=== PATIENT | male | born 1960 | race American Indian/Alaskan Native ===

== ENCOUNTER 2018-12-20 19:19 | Emergency (ER) | payer MEDICAID ==
--- NOTE | 2018-12-20 20:12 | Emergency Department Report ---
Chief Complaint: Medical Clearance Stated Complaint: CLEARANCE FOR DETOX Time Seen by Provider: 12/20/18 20:07 - HPI History of Present Illness: This is a 58 y.o. male that presents for assistance with alcohol detox. The last drink was 2 hours ago. PMH COPD on home oxygen 3L, CHF, chronic pain, and DVT. Denies SI/HI, palpitations, chest pain, nausea or vomiting. - ROS Review of Systems: denies symptoms - Exam Vital Signs: Vital Signs 12/20/18 20:07 Temperature 98.1 F Pulse Rate 98 H Respiratory 20 Rate Blood Pressure 124/68 O2 Sat by Pulse 98 Oximetry MSE screening note: Focused history and physical exam performed. Due to findings the following was ordered: labs ED Disposition for MSE Condition: Stable
[2018-12-20 20:40] LABS: Basophils % (Auto) 0.3 % (0.0-1.8); Eosinophils # (Auto) 0.2 K/mm3 (0.0-0.4); Eosinophils % (Auto) 3.7 % (0.0-4.3); Hematocrit 40.2 % (35.5-45.6); Lymphocytes # (Auto) 1.6 K/mm3 (1.2-5.4); Lymphocytes % (Auto) 26.3 % (13.4-35.0); Mean Corpuscular HGB Conc 32 % (32-34); Mean Corpuscular Volume 99 fl (84-94); Monocytes # (Auto) 0.7 K/mm3 (0.0-0.8); Monocytes % (Auto) 11.3 % (0.0-7.3); Platelet Count 185 K/mm3 (140-440); Red Blood Count 4.07 M/mm3 (3.65-5.03); Red Cell Distribution Width 19.9 % (13.2-15.2)
[2018-12-20 20:54] LABS: BUN/Creatinine Ratio 10; Blood Urea Nitrogen 10 mg/dL (9-20); Calcium 8.3 mg/dL (8.4-10.2); Hemolysis Index 24
[2018-12-20 21:14] LABS: Bacteria,Urine 2+ /HPF (Negative); Bilirubin,Urine NEG (Negative); Blood,Urine NEG (Negative); Color,Urine Amber (Yellow); Hyaline Casts,Urine 15 /LPF; Mucus,Urine 1+ /HPF
[2018-12-20 21:16] LABS: WBC,Urine > 182.0 /HPF (0.0-6.0)
[2018-12-20 21:18] LABS: Amphetamine Screen,Urine PRESUMPTIVE NEGATIVE; Benzodiazepines Screen,Urine PRESUMPTIVE NEGATIVE; Cannabinoid Screen,Urine PRESUMPTIVE NEGATIVE; Cocaine Screen,Urine PRESUMPTIVE NEGATIVE; Opiate Screen,Urine PRESUMPTIVE NEGATIVE
[2018-12-20 21:34] LABS: Methadone Screen,Urine PRESUMPTIVE POSITIVE
--- NOTE | 2018-12-20 23:57 | Emergency Department Report ---
ED Alcohol HPI - General Chief Complaint: Medical Clearance Stated Complaint: CLEARANCE FOR DETOX Time Seen by Provider: 12/20/18 20:07 Source: patient, family Mode of arrival: Wheelchair Limitations: Physical Limitation - History of Present Illness Initial Comments: Patient is 58 years old male with history of COPD on 3 L oxygen at home, diabetes and arthritis. Patient presented to the ER asking for medical clearance for alcohol detoxification inpatient admission. Patient stated that he drink daily about 6 vodka. Last drink just prior to coming to the ER. Patient denied any suicidal or homicidal ideation. No auditory or visual hallucination. Patient denied any shortness of breath or chest pain. MD Complaint: alcohol dependence, desires rehab, medical clearance for det Last Drink: just [employer] Chronic Alcohol Use: Yes Previous Visits for Alcohol Intoxication?: Yes Recent Trauma: No Associated Symptoms: denies other symptoms Treatments Prior to Arrival: none - Related Data Allergies Allergy/AdvReac Type Severity Reaction Status Date / Time No Known Allergies Allergy Unverified 12/20/18 19:51 ED Review of Systems ROS: Stated complaint: CLEARANCE FOR DETOX Other details as noted in HPI Comment: All other systems reviewed and negative Constitutional: denies: chills, fever Respiratory: denies: cough, orthopnea, shortness of breath, SOB with exertion, SOB at rest, wheezing Cardiovascular: denies: chest pain, palpitations Gastrointestinal: denies: abdominal pain, nausea, vomiting, diarrhea, constipation, hematemesis, melena, hematochezia Neurological: denies: headache, weakness, numbness, paresthesias, confusion, abnormal gait ED Past Medical Hx - Past Medical History Hx COPD: Yes (home O2 3L) Additional medical history: DVT'S - Surgical History Past Surgical History?: No - Social History Smoking Status: Former Smoker Substance Use Type: Alcohol ED Physical Exam - General Limitations: Physical Limitation General appearance: alert, in no apparent distress - Head Head exam: Present: atraumatic, normocephalic, normal inspection - Eye Eye exam: Present: normal appearance, PERRL - ENT ENT exam: Present: normal exam, normal orophraynx, mucous membranes moist - Neck Neck exam: Present: normal inspection, full ROM. Absent: tenderness, meningismus, lymphadenopathy, thyromegaly - Respiratory Respiratory exam: Present: normal lung sounds bilaterally. Absent: respiratory distress, wheezes, rales, rhonchi, stridor, chest wall tenderness, accessory muscle use, decreased breath sounds, prolonged expiratory - Cardiovascular Cardiovascular Exam: Present: regular rate, normal rhythm, normal heart sounds - GI/Abdominal GI/Abdominal exam: Present: soft, normal bowel sounds. Absent: distended, tenderness, guarding, rebound, rigid, organomegaly, mass, bruit, pulsatile mass, hernia - Extremities Exam Extremities exam: Present: normal inspection, full ROM, normal capillary refill. Absent: tenderness, pedal edema, joint swelling, calf tenderness - Back Exam Back exam: Present: normal inspection, full ROM. Absent: CVA tenderness (R), CVA tenderness (L), muscle spasm, paraspinal tenderness, vertebral tenderness - Neurological Exam Neurological exam: Present: alert, oriented X3, CN II-XII intact, normal gait, reflexes normal - Skin Skin exam: Present: warm, intact, normal color ED Course Vital Signs 12/20/18 20:07 Temperature 98.1 F Pulse Rate 98 H Respiratory 20 Rate Blood Pressure 124/68 O2 Sat by Pulse 98 Oximetry ED Medical Decision Making - Lab Data Result diagrams: 12/20/18 20:14 12/20/18 20:13 Critical care attestation.: If time is entered above; I have spent that time in minutes in the direct care of this critically ill patient, excluding procedure time. ED Disposition Clinical Impression: Alcohol abuse, Desire for detoxification Disposition: [id number]/TX-[id number]/PSY UNIT Is pt being admited?: No Condition: Stable Referrals: PRIMARY CARE, [Primary Care Provider] - 3-5 Days
[2018-12-21] MEDS ORDERED: LEVAQUIN PO ONE (01:01)
[2018-12-21] MEDS ORDERED: HumuLIN R IV ONE (01:03)
[2018-12-21] MEDS ORDERED: ATIVAN PO PRN (11:52)
[2018-12-21] MEDS ORDERED: K-DUR PO ONE (11:55)
[2018-12-21] MEDS ORDERED: WARFARIN 7.5 MG PO SCH (12:00)
[2018-12-21] MEDS ORDERED: LASIX PO SCH (12:00)
[2018-12-21] MEDS ORDERED: NON-FORMULARY (Lasix 40 MG) PO SCH (12:00)
[2018-12-21] MEDS ORDERED: LASIX ONE (12:15)
[2018-12-21] MEDS: ATIVAN PO PRN ×3 (12:30→22:38)
[2018-12-21 12:35] LABS: INR 1.22 (0.87-1.13)
[2018-12-21 12:36] LABS: Partial Thromboplastin Time 23.5 Sec. (24.2-36.6)
[2018-12-21] MEDS ORDERED: MAGNESIUM SULFATE 2GM/50ML 2 GM/50 ML BAG IV ONE (13:04)
--- NOTE | 2018-12-21 13:07 | Emergency Department Report ---
Blank Doc - Documentation Documentation: pt here awaiting placement for etoh detox CIWA ordered (prn oral Ativan) PO KCL and IV mag to supplement electrolytes Keflex 500 mg BID for uti INR subtherapeutic, coumadin dose ordered and continued. Lasix continued
[2018-12-21] MEDS: COUMADIN PO SCH ×2 (14:28→18:52)
[2018-12-21] MEDS ORDERED: KEFLEX PO SCH (22:00)
[2018-12-21 23:19] LABS: INR 1.18 (0.87-1.13)
[2018-12-22 04:44] LABS: INR 1.2 (0.87-1.13)
[2018-12-22 06:31] VITALS: BP 127/75
--- NOTE | 2018-12-23 12:54 | Consultation ---
History of Present Illness - Reason for Consult Consult date: 12/23/18 Reason for consult: Initial Psychiatric Evaluation - History of Present Psychiatric Illness Patient not seen. Patient discharged. Medications and Allergies Allergies Allergy/AdvReac Type Severity Reaction Status Date / Time No Known Allergies Allergy Unverified 12/20/18 19:51 Home Medications Medication Instructions Recorded Confirmed Last Taken Type Lasix 40 mg PO DAILY 12/21/18 12/21/18 Unknown History Methadone 35 mg PO DAILY 12/21/18 12/21/18 Unknown History Warfarin 7.5 mg PO DAILY 12/21/18 12/21/18 Unknown History cephALEXin [Keflex] 500 mg PO BID 10 Days #20 capsule 12/22/18 Unknown Rx Mental Status Exam - Vital signs Last Vital Signs Temp 97.4 F L 12/21/18 07:32 Pulse 94 H 12/22/18 06:30 Resp 19 12/22/18 06:30 BP 127/75 12/22/18 06:30 Pulse Ox 95 12/22/18 06:30 Results Result Diagrams: 12/20/18 20:14 12/20/18 20:13 All other labs normal.
== END 2018-12-22 08:00 | disposition home or self-care (01) ==
LOC: ED 19:19
DX: F10.20 Alcohol dependence, uncomplicated (principal); J44.9 Chronic obstructive pulmonary disease, unspecified; Z87.891 Personal history of nicotine dependence; Z86.718 Personal history of other venous thrombosis and embolism; Y90.8 Blood alcohol level of 240 mg/100 ml or more
CPT/HCPCS: 36415; 80048; 80307; 81001; 82962; 83735; 85025; 85610; 85730; 96365; 96375; 99284; G0480; J3475; 80320; J1815

== ENCOUNTER 2019-12-03 12:33 | Emergency (ER) | payer MEDICAID ==
--- NOTE | 2019-12-03 12:49 | Event Note ---
ED Screening Note ED Screening Note: CP substernal and left sided that began two days ago feels like a tightness +SOB no n/v/d left leg swelling for a week PMHx COPD, CHF, PE/DVT on eliquis, states he did not take last nights dose This initial assessment/diagnostic orders/clinical plan/treatment(s) is/are subject to change based on patients health status, clinical progression and re- assessment by fellow clinical providers in the ED. Further treatment and workup at subsequent clinical providers discretion. Patient/guardian urged not to elope from the ED as their condition may be serious if not clinically assessed and managed. Initial orders include: CP protocol, US LLE
--- NOTE | 2019-12-03 13:21 | XRay Report ---
CHEST 2 VIEWS INDICATION: CP, SOB, hx of CHF. COMPARISON: None FINDINGS: Support devices: None. Heart: Within normal limits. Lungs/pleura: The lungs are hyperinflated with chronic interstitial changes and scarring/volume loss in the upper lung zones no evidence for pneumonia, pleural fluid or pneumothorax. Additional findings: None. IMPRESSION: Advanced emphysematous changes. Chronic scarring and volume loss in the upper lobes. Signer Name: Fer Brenner Jr, MD Signed: 12/03/2019 1:17 PM Workstation Name: [id number]
[2019-12-03 13:25] LABS: Basophils % (Auto) 0.4 % (0.0-1.8); Eosinophils # (Auto) 0.1 K/mm3 (0.0-0.4); Eosinophils % (Auto) 1.2 % (0.0-4.3); Hematocrit 35.9 % (35.5-45.6); Hemoglobin 11.8 gm/dl (11.8-15.2); Lymphocytes # (Auto) 2.3 K/mm3 (1.2-5.4); Lymphocytes % (Auto) 19.5 % (13.4-35.0); Mean Corpuscular HGB Conc 33 % (32-34); Mean Corpuscular Volume 93 fl (84-94); Monocytes # (Auto) 1.1 K/mm3 (0.0-0.8); Monocytes % (Auto) 9.7 % (0.0-7.3); Platelet Count 284 K/mm3 (140-440); Red Blood Count 3.85 M/mm3 (3.65-5.03); Red Cell Distribution Width 16.2 % (13.2-15.2)
[2019-12-03 13:50] LABS: Alanine Aminotransferase 16 units/L (7-56); BUN/Creatinine Ratio 23; Blood Urea Nitrogen 25 mg/dL (9-20); Calcium 9.8 mg/dL (8.4-10.2); Hemolysis Index 9
[2019-12-03 14:25] LABS: Albumin 4.3 g/dL (3.9-5)
--- NOTE | 2019-12-03 15:06 | Vascular Lab Report ---
DUPLEX DOPPLER LOWER EXTREMITY VEINS, BILATERAL INDICATION: PAIN/EDEMA. Previous history of DVTs with IVC filter and on liquids TECHNIQUE: Duplex doppler imaging was performed through the veins of both lower extremities using ve nous compression and other maneuvers. COMPARISON: No relevant prior imaging study available. FINDINGS: Chronic appearing DVTs are identified in both lower extremities. Chronic DVT on the right side extend s from the right external iliac vein to the proximal right calf veins. Chronic DVT on the left side e xtends from the common femoral vein to the popliteal vein. No definite acute DVT is identified. IMPRESSION: Chronic appearing bilateral DVTs as described. Signer Name: Fer Brenner Jr, MD Signed: 12/03/2019 3:02 PM Workstation Name: [id number]
--- NOTE | 2019-12-03 15:44 | Emergency Department Report ---
<ROSALIO TYLER - Last Filed: 12/04/19 14:16> ED General Adult HPI - General Chief complaint: Chest Pain Stated complaint: SOB, CHEST PAIN Time Seen by Provider: 12/03/19 12:46 Source: patient Mode of arrival: Wheelchair Limitations: No Limitations - History of Present Illness Initial comments: The patient presents to the emergency department chief complaint of chest pain that started last night. Patient states chest pain is located on the left side of his chest without radiation. Patient states that the [facility] and was recently diagnosed with DVTs and supposed to have Eliquis every day but not receive it today. Patient denies shortness of breath, abdominal pain, headache. Patient states he does not want to return to the [facility] because they are not giving him his medications as prescribed. Patient states he is most concerned days not given his Eliquis which he needs for his DVTs -: Sudden Location: chest Radiation: non-radiation Severity scale (0 -10): 6 Quality: dull Consistency: constant Improves with: none Worsens with: none Associated Symptoms: denies other symptoms Treatments Prior to Arrival: none - Related Data Home Medications Medication Instructions Recorded Confirmed Last Taken Albuterol Sulfate [Proventil Hfa] 90 mcg IH PRN 12/03/19 12/03/19 Unknown Apixaban [Eliquis] 5 mg PO QDAY 12/03/19 12/03/19 Unknown Aspirin [Aspirin BABY CHEW TAB] 81 mg PO QDAY 12/03/19 12/03/19 Unknown Budesonide/Formoterol Fumarate 10.2 gm IH PRN 12/03/19 12/03/19 Unknown [Symbicort 160-4.5 Mcg Inhaler] Fluticasone [Flonase] 1 spray NS QDAY 12/03/19 12/03/19 Unknown Folic Acid [Folvite] 1 mg PO QDAY 12/03/19 12/03/19 Unknown Methadone [Dolophine] 10 mg PO QDAY 12/03/19 12/03/19 Unknown Metoprolol Tartrate 25 mg PO BID 12/03/19 12/03/19 Unknown Potassium Chloride 10 meq PO QDAY 12/03/19 12/03/19 Unknown amLODIPine [Norvasc] 10 mg PO DAILY 12/03/19 12/03/19 Unknown hydrALAZINE [Apresoline] 25 mg PO QDAY 12/03/19 12/03/19 Unknown Allergies Allergy/AdvReac Type Severity Reaction Status Date / Time No Known Allergies Allergy Unverified 12/20/18 19:51 ED Review of Systems Comment: All other systems reviewed and negative Constitutional: denies: chills, fever Eyes: denies: eye pain, eye discharge, vision change ENT: denies: ear pain, throat pain Respiratory: shortness of breath. denies: cough, wheezing Cardiovascular: chest pain. denies: palpitations Endocrine: no symptoms reported Gastrointestinal: denies: abdominal pain, nausea, diarrhea Genitourinary: denies: urgency, dysuria Musculoskeletal: denies: back pain, joint swelling, arthralgia Skin: denies: rash, lesions Neurological: denies: headache, weakness, paresthesias Psychiatric: denies: anxiety, depression Hematological/Lymphatic: denies: easy bleeding, easy bruising ED Past Medical Hx - Past Medical History Previous Medical History?: Yes Hx Congestive Heart Failure: Yes Hx COPD: Yes (home O2 3L) Additional medical history: DVT'S, Sleep Apnea - Social History Smoking Status: Current Every Day Smoker Substance Use Type: None - Medications Home Medications: Home Medications Medication Instructions Recorded Confirmed Last Taken Type Albuterol Sulfate [Proventil Hfa] 90 mcg IH PRN 12/03/19 12/03/19 Unknown History Apixaban [Eliquis] 5 mg PO QDAY 12/03/19 12/03/19 Unknown History Aspirin [Aspirin BABY CHEW TAB] 81 mg PO QDAY 12/03/19 12/03/19 Unknown History Budesonide/Formoterol Fumarate 10.2 gm IH PRN 12/03/19 12/03/19 Unknown History [Symbicort 160-4.5 Mcg Inhaler] Fluticasone [Flonase] 1 spray NS QDAY 12/03/19 12/03/19 Unknown History Folic Acid [Folvite] 1 mg PO QDAY 12/03/19 12/03/19 Unknown History Methadone [Dolophine] 10 mg PO QDAY 12/03/19 12/03/19 Unknown History Metoprolol Tartrate 25 mg PO BID 12/03/19 12/03/19 Unknown History Potassium Chloride 10 meq PO QDAY 12/03/19 12/03/19 Unknown History amLODIPine [Norvasc] 10 mg PO DAILY 12/03/19 12/03/19 Unknown History hydrALAZINE [Apresoline] 25 mg PO QDAY 12/03/19 12/03/19 Unknown History ED Physical Exam - General Limitations: No Limitations General appearance: alert, in no apparent distress - Head Head exam: Present: atraumatic, normocephalic - Eye Eye exam: Present: normal appearance, PERRL, EOMI - ENT ENT exam: Present: mucous membranes moist - Neck Neck exam: Present: normal inspection - Respiratory Respiratory exam: Present: normal lung sounds bilaterally. Absent: respiratory distress - Cardiovascular Cardiovascular Exam: Present: regular rate, normal rhythm. Absent: systolic murmur, diastolic murmur, rubs, gallop - GI/Abdominal GI/Abdominal exam: Present: soft, normal bowel sounds. Absent: distended, tenderness - Rectal Rectal exam: Present: deferred - Extremities Exam Extremities exam: Present: normal inspection - Back Exam Back exam: Present: normal inspection - Neurological Exam Neurological exam: Present: alert, oriented X3, CN II-XII intact. Absent: motor sensory deficit - Psychiatric Psychiatric exam: Present: normal affect, normal mood - Skin Skin exam: Present: warm, dry, intact, normal color. Absent: rash ED Medical Decision Making - Lab Data Result diagrams: 12/03/19 12:56 12/03/19 12:56 Lab Results 12/03/19 12/03/19 12/03/19 Range/Units 12:56 12:56 15:29 WBC 11.6 H (4.5-11.0) K/mm3 RBC 3.85 (3.65-5.03) M/mm3 Hgb 11.8 (11.8-15.2) gm/dl Hct 35.9 (35.5-45.6) % MCV 93 (84-94) fl MCH 31 (28-32) pg MCHC 33 (32-34) % RDW 16.2 H (13.2-15.2) % Plt Count 284 (140-440) K/mm3 Lymph % (Auto) 19.5 (13.4-35.0) % Giles % (Auto) 9.7 H (0.0-7.3) % Eos % (Auto) 1.2 (0.0-4.3) % Baso % (Auto) 0.4 (0.0-1.8) % Lymph # 2.3 (1.2-5.4) K/mm3 Giles # 1.1 H (0.0-0.8) K/mm3 Eos # 0.1 (0.0-0.4) K/mm3 Baso # 0.0 (0.0-0.1) K/mm3 Seg Neutrophils % 69.2 (40.0-70.0) % Seg Neutrophils # 8.0 H (1.8-7.7) K/mm3 PT (12.2-14.9) Sec. INR (0.87-1.13) APTT (24.2-36.6) Sec. Sodium 138 (137-145) mmol/L Potassium 4.4 (3.6-5.0) mmol/L Chloride 99.8 (98-107) mmol/L Carbon Dioxide 25 (22-30) mmol/L Anion Gap 18 mmol/L BUN 25 H (9-20) mg/dL Creatinine 1.1 (0.8-1.5) mg/dL Estimated GFR > 60 ml/min BUN/Creatinine Ratio 23 % Glucose 113 H (75-100) mg/dL Calcium 9.8 (8.4-10.2) mg/dL Total Bilirubin 0.40 (0.1-1.2) mg/dL AST 14 (5-40) units/L ALT 16 (7-56) units/L Alkaline Phosphatase 128 (35-129) units/L Troponin T < 0.010 < 0.010 (0.00-0.029) ng/mL NT-Pro-B Natriuret Pep 142.1 (0-900) pg/mL Total Protein 7.8 (6.3-8.2) g/dL Albumin 4.3 (3.9-5) g/dL Albumin/Globulin Ratio 1.2 % 12/03/19 Range/Units 15:54 WBC (4.5-11.0) K/mm3 RBC (3.65-5.03) M/mm3 Hgb (11.8-15.2) gm/dl Hct (35.5-45.6) % MCV (84-94) fl MCH (28-32) pg MCHC (32-34) % RDW (13.2-15.2) % Plt Count (140-440) K/mm3 Lymph % (Auto) (13.4-35.0) % Giles % (Auto) (0.0-7.3) % Eos % (Auto) (0.0-4.3) % Baso % (Auto) (0.0-1.8) % Lymph # (1.2-5.4) K/mm3 Giles # (0.0-0.8) K/mm3 Eos # (0.0-0.4) K/mm3 Baso # (0.0-0.1) K/mm3 Seg Neutrophils % (40.0-70.0) % Seg Neutrophils # (1.8-7.7) K/mm3 PT 14.7 (12.2-14.9) Sec. INR 1.13 (0.87-1.13) APTT 33.2 (24.2-36.6) Sec. Sodium (137-145) mmol/L Potassium (3.6-5.0) mmol/L Chloride (98-107) mmol/L Carbon Dioxide (22-30) mmol/L Anion Gap mmol/L BUN (9-20) mg/dL Creatinine (0.8-1.5) mg/dL Estimated GFR ml/min BUN/Creatinine Ratio % Glucose (75-100) mg/dL Calcium (8.4-10.2) mg/dL Total Bilirubin (0.1-1.2) mg/dL AST (5-40) units/L ALT (7-56) units/L Alkaline Phosphatase (35-129) units/L Troponin T (0.00-0.029) ng/mL NT-Pro-B Natriuret Pep (0-900) pg/mL Total Protein (6.3-8.2) g/dL Albumin (3.9-5) g/dL Albumin/Globulin Ratio % - EKG Data -: EKG Interpreted by Il EKG shows normal: sinus rhythm Rate: normal - Radiology Data Radiology results: report reviewed - Medical Decision Making CT angiogram of the chest is being done to evaluate for pulmonary emboli due to the patient having chest pain with a history of DVTs which has been reported to be not adequately treated director human services consult placed ED Disposition Clinical Impression: Chest pain Disposition: TO HOME OR SELFCARE Condition: Stable Additional Instructions: Continue outpatient medications. Do not take metformin medication for the next 2 days, if patient takes this medication. Follow-up with a primary care doctor or alpine guide within the next 5 to 7 days for complaint of chest pain. Please return to the emergency room right away with new, worsened or different symptoms, or symptoms not present on the initial emergency room evaluation. Referrals: [facility] [Provider Group] - 3-5 Days [facility] [Provider Group] - 3-5 Days [facility] [Provider Group] - 3-5 Days [facility], [Provider Group] - 3-5 Days <AMADA NATION - Last Filed: 12/05/19 11:59> ED Review of Systems ROS: Stated complaint: SOB, CHEST PAIN Other details as noted in HPI ED Course Vital Signs 12/03/19 12/03/19 12/03/19 12:52 15:36 16:00 Temperature 97.6 F Pulse Rate 67 72 Respiratory 18 16 Rate Blood Pressure 117/67 Blood Pressure 131/72 [Left] O2 Sat by Pulse 95 97 99 Oximetry 12/03/19 12/03/19 12/03/19 17:15 18:27 18:30 Temperature Pulse Rate 68 60 59 L Respiratory 14 15 15 Rate Blood Pressure 132/63 132/63 Blood Pressure 121/57 [Left] O2 Sat by Pulse 95 94 93 Oximetry 12/03/19 12/03/19 12/03/19 18:46 19:00 19:15 Temperature 98.1 F Pulse Rate 64 72 73 Respiratory 16 19 13 Rate Blood Pressure 141/66 131/65 Blood Pressure 141/84 [Left] O2 Sat by Pulse 95 92 95 Oximetry 12/03/19 12/03/19 12/03/19 19:16 19:30 19:46 Temperature Pulse Rate 76 95 H 65 Respiratory 16 12 14 Rate Blood Pressure 141/73 141/84 131/66 Blood Pressure [Left] O2 Sat by Pulse 94 93 89 Oximetry 12/03/19 12/03/19 12/03/19 20:00 20:16 20:30 Temperature Pulse Rate 64 63 66 Respiratory 15 12 13 Rate Blood Pressure 134/59 136/69 135/69 Blood Pressure [Left] O2 Sat by Pulse 94 97 95 Oximetry 12/03/19 12/03/19 12/03/19 20:46 21:00 21:15 Temperature Pulse Rate 70 62 65 Respiratory 13 16 15 Rate Blood Pressure 155/68 153/80 132/73 Blood Pressure [Left] O2 Sat by Pulse 93 93 90 Oximetry 12/03/19 12/03/19 12/03/19 21:28 21:30 21:45 Temperature Pulse Rate 71 59 L 62 Respiratory 12 15 18 Rate Blood Pressure 132/73 132/73 132/66 Blood Pressure [Left] O2 Sat by Pulse 94 94 92 Oximetry 12/03/19 12/03/19 12/03/19 22:00 22:15 22:27 Temperature Pulse Rate 67 70 73 Respiratory 14 15 15 Rate Blood Pressure 132/66 119/53 132/73 Blood Pressure [Left] O2 Sat by Pulse 95 95 94 Oximetry 12/03/19 12/03/19 12/03/19 22:30 22:46 23:00 Temperature Pulse Rate 76 73 80 Respiratory 17 16 15 Rate Blood Pressure 130/43 119/53 119/53 Blood Pressure [Left] O2 Sat by Pulse 94 94 95 Oximetry 12/03/19 12/03/19 12/03/19 23:16 23:30 23:46 Temperature Pulse Rate 76 79 62 Respiratory 23 17 16 Rate Blood Pressure 119/53 119/53 119/53 Blood Pressure [Left] O2 Sat by Pulse 92 95 94 Oximetry 12/04/19 12/04/19 12/04/19 00:00 00:16 00:30 Temperature Pulse Rate 60 57 L 60 Respiratory 16 15 13 Rate Blood Pressure 124/56 130/43 130/43 Blood Pressure [Left] O2 Sat by Pulse 94 95 93 Oximetry 12/04/19 12/04/19 12/04/19 03:15 11:22 11:25 Temperature Pulse Rate 67 61 Respiratory 18 16 Rate Blood Pressure 124/63 Blood Pressure 132/66 124/63 [Left] O2 Sat by Pulse 95 96 Oximetry 12/04/19 12/04/19 12/04/19 11:26 11:30 19:23 Temperature 97.9 F Pulse Rate 74 Respiratory 18 Rate Blood Pressure 124/63 124/63 Blood Pressure 131/74 [Left] O2 Sat by Pulse 93 Oximetry 12/04/19 12/05/19 12/05/19 23:09 02:32 07:20 Temperature 98.5 F 98.5 F Pulse Rate 80 70 50 L Respiratory 18 20 Rate Blood Pressure 147/90 Blood Pressure 130/84 122/68 [Left] O2 Sat by Pulse 94 94 Oximetry 12/05/19 12/05/19 12/05/19 09:53 10:06 10:08 Temperature Pulse Rate 56 L 56 L 56 L Respiratory Rate Blood Pressure 127/72 127/72 Blood Pressure 127/72 [Left] O2 Sat by Pulse 96 Oximetry - Reevaluation(s) Reevaluation #1: 12/05/19 11:57 The patient is observed for hours without clinical deterioration. Bradycardia is reviewed and appreciated, the patient is not symptomatic, this is likely secondary to his eric blocking agents. The patient does not appear to have an emergent medical condition at this time. He was medically cleared by Dr. Tyler, and he continues to be medically cleared. He was seen by case management, and he will be discharge with his significant other. ED Medical Decision Making - Lab Data Result diagrams: 12/03/19 12:56 12/03/19 12:56 Critical care attestation.: If time is entered above; I have spent that time in minutes in the direct care of this critically ill patient, excluding procedure time. ED Disposition Is pt being admited?: No Does the pt Need Aspirin: No
[2019-12-03] MEDS ORDERED: HYDROcodone/ACETAMINOPHEN 10-325MG TAB PO ONE (16:21)
[2019-12-03] MEDS ORDERED: ONDANSETRON 4 MG ODT TAB PO ONE (16:21)
[2019-12-03] MEDS ORDERED: APIXABAN 5 MG TAB PO ONE (16:22)
[2019-12-03 16:38] LABS: INR 1.13 (0.87-1.13); Partial Thromboplastin Time 33.2 Sec. (24.2-36.6)
--- NOTE | 2019-12-03 18:29 | Cat Scan Report ---
CTA CHEST WITH IV CONTRAST INDICATION / CLINICAL INFORMATION: chest pain with documanted dvt. TECHNIQUE: Axial CT images were obtained through the chest after injection of IV contrast. 3 plane MIP and/or 3D reconstructions were produced. All CT scans at this location are performed using CT dose reduction f or ALARA by means of automated exposure control. COMPARISON: None available. FINDINGS: PULMONARY ARTERIES: No pulmonary emboli. THORACIC AORTA: No significant abnormality. HEART: No significant abnormality. CORONARY ARTERIES: No significant calcification. PLEURA: No pleural effusion. No pneumothorax. LYMPH NODES: Several enlarged mediastinal lymph nodes are present, for example, 1.2 cm right paratrac heal lymph node LUNGS: Severe chronic lung disease with blebs and bullae present especially in the upper lobes. Scarr ing is present right apex. ADDITIONAL FINDINGS: Enlarged left adrenal gland measuring 4 cm in long axis UPPER ABDOMEN: No acute findings. SKELETAL STRUCTURES: No significant osseous abnormality. IMPRESSION: 1. No CT evidence for pulmonary embolism. 2. Severe chronic lung disease with scarring right apex 3. Mediastinal lymphadenopathy probably reactive 4. Enlarged left adrenal gland Signer Name: Ed Hoyos MD Signed: 12/03/2019 6:25 PM Workstation Name: [id number]
[2019-12-03] MEDS ORDERED: traMADol 50 MG TAB PO ONE (20:25)
[2019-12-03] MEDS: ASPIRIN 81 MG TAB CHEW PO SCH (21:45)
[2019-12-03] MEDS: amLODIPine 10 MG TAB PO SCH (21:49)
[2019-12-03] MEDS: hydrALAZINE 25 MG TAB PO SCH (21:49)
[2019-12-03] MEDS ORDERED: METOPROLOL TARTRATE 25 MG PO SCH (22:00)
[2019-12-03] MEDS: METOPROLOL TARTRATE 25 MG TAB PO SCH (22:25)
[2019-12-04] MEDS ORDERED: HYDROcodone/ACETAMINOPHEN 5-325 MG TAB PO ONE (03:15)
[2019-12-04] MEDS ORDERED: HYDROcodone/ACETAMINOPHEN 5-325 MG TAB ONE (03:17)
[2019-12-04] MEDS ORDERED: ACETAMINOPHEN 325 MG TAB PO ONE (11:20)
[2019-12-04] MEDS: amLODIPine 10 MG TAB PO SCH (11:25)
[2019-12-04] MEDS: METOPROLOL TARTRATE 25 MG TAB PO SCH ×2 (11:26→23:09)
[2019-12-04] MEDS: hydrALAZINE 25 MG TAB PO SCH (11:30)
[2019-12-04] MEDS: APIXABAN 5 MG TAB PO SCH ×3 (11:31→11:33)
[2019-12-04] MEDS: ASPIRIN 81 MG TAB CHEW PO SCH (11:31)
[2019-12-04] MEDS ORDERED: METHADONE 10 MG TAB PO ONE (19:45)
[2019-12-05 09:55] VITALS: BP 127/72
[2019-12-05] MEDS: METOPROLOL TARTRATE 25 MG TAB PO SCH (10:00)
[2019-12-05] MEDS ORDERED: METHADONE 10 MG TAB PO SCH (10:00)
[2019-12-05] MEDS: APIXABAN 5 MG TAB PO SCH (10:02)
[2019-12-05] MEDS: ASPIRIN 81 MG TAB CHEW PO SCH (10:02)
[2019-12-05] MEDS: hydrALAZINE 25 MG TAB PO SCH (10:06)
[2019-12-05] MEDS: amLODIPine 10 MG TAB PO SCH (10:08)
== END 2019-12-05 12:07 | disposition home or self-care (01) ==
LOC: ED 12:33
DX: R07.89 Other chest pain (principal); I50.9 Heart failure, unspecified; J44.9 Chronic obstructive pulmonary disease, unspecified; F17.200 Nicotine dependence, unspecified, uncomplicated; Z79.82 Long term (current) use of aspirin; Z79.899 Other long term (current) drug therapy
CPT/HCPCS: 36415; 71046; 71275; 80053; 83880; 84484; 85025; 85610; 85730; 93005; 93010; 93970; 99285; Q9967; Q0162